=== PATIENT | female | born 1950 | race Hispanic/Latino ===

== ENCOUNTER 2021-01-14 15:44 | Emergency (ER) | payer OTHER, MEDICARE ==
[2021-01-14] MEDS ORDERED: ONDANSETRON HCL 4 MG/2 ML VIAL ONE (16:23)
[2021-01-14 16:44] LABS: BASOPHILS % (AUTO) 0.3 % (0.0-5.0); EOSINOPHILS % (AUTO) 0.1 % (0.0-8.0); HEMATOCRIT 42.7 % (36-48); LYMPHOCYTES % (AUTO) 2.6 % (21.0-51.0); MEAN CORPUSCULAR HEMOGLOBIN 27.2 pg (27.0-33.0); MEAN CORPUSCULAR HGB CONC 31.4 g/dL (32.0-36.0); MEAN CORPUSCULAR VOLUME 86.6 fL (79-99); MONOCYTES % (AUTO) 3.7 % (3.0-13.0); NEUTROPHILS % (AUTO) 92.8 % (40.0-77.0); PLATELET COUNT (AUTO) 310 K/uL (130-400); RED BLOOD CELL COUNT(AUTO) 4.93 MIL/uL (4.00-5.50); RED CELL DISTRIBUTION WIDTH 14.5 % (11.0-15.5); WHITE BLOOD COUNT (AUTO) 10.9 K/uL (4.8-10.8)
[2021-01-14 16:53] LABS: CREATININE 0.9 mg/dL (0.5-1.5); POTASSIUM 3.7 mmol/L (3.5-5.1)
[2021-01-14 16:58] LABS: ALBUMIN 3.7 g/dL (3.5-5.0); BILIRUBIN,TOTAL 0.5 mg/dL (0.2-1.0); TOTAL PROTEIN, SERUM 7.5 g/dL (6.0-8.3)
[2021-01-14 17:44] LABS: APPEARANCE,URINE Clear (CLEAR); BILIRUBIN,URINE Negative (NEGATIVE); COLOR,URINE Yellow (YELLOW); GLUCOSE, URINE (UA) Negative (NEGATIVE); KETONES,URINE Trace mg/dL (NEGATIVE); LEUKOCYTE ESTERASE ,URINE Trace (NEGATIVE); NITRATE,URINE Negative (NEGATIVE); OCCULT BLOOD,URINE Negative (NEGATIVE); PH,URINE 6.5 (5.0-8.0); PROTEIN,URINE POS 1+ mg/dL (NEGATIVE)
[2021-01-14 18:08] LABS: BACTERIA,URINE Few /HPF (None Seen); MUCUS,URINE Few LPF (None Seen); SQUAMOUS EPITHELIAL CELL,UR Moderate /HPF (0-2)
== END 2021-01-14 18:42 | disposition home or self-care (01) ==
LOC: EDH 15:44
DX: R11.2 Nausea with vomiting, unspecified (principal)
CPT/HCPCS: 36415; 80053; 81001; 83690; 85025; 93005; 96365; 96366; 99284; J2405

== ENCOUNTER 2023-07-07 15:23 | Observation (INO) | payer MEDICARE, OTHER ==
[~2023-07-07] VITALS: Ht 162.6 cm; Wt 104.3 kg
[2023-07-07 16:26] LABS: APPEARANCE,URINE CLOUDY (CLEAR); BILIRUBIN,URINE NEGATIVE (NEGATIVE); COLOR,URINE LIGHT-YELLOW (YELLOW); GLUCOSE, URINE (UA) NEGATIVE (NEGATIVE); KETONES,URINE NEGATIVE (NEGATIVE); LEUKOCYTE ESTERASE ,URINE NEGATIVE Leu/uL (NEGATIVE); NITRATE,URINE NEGATIVE (NEGATIVE); OCCULT BLOOD,URINE NEGATIVE (NEGATIVE); PH,URINE 7.5 (5.0-8.0); PROTEIN,URINE NEGATIVE (NEGATIVE); UROBILINOGEN,URINE 0.2 mg/dL (0.2-1.0)
[2023-07-07 16:27] LABS: ADD UA MICROSCOPIC YES
[2023-07-07 16:30] LABS: BACTERIA,URINE FEW /HPF (None Seen); MUCUS,URINE RARE LPF (None Seen); RBC,URINE 0-1 /HPF (0-1); SQUAMOUS EPITHELIAL CELL,UR RARE /HPF (0-2); UNCLASSIFIED CRYSTAL 13 /HPF (None Seen); YEAST,URINE BUDDING MOD /HPF (None Seen)
[2023-07-07 16:57] LABS: BASOPHILS # (AUTO) 0.05 K/uL (0.00-0.20); BASOPHILS % (AUTO) 0.5 % (0.0-5.0); EOSINOPHILS # (AUTO) 0.04 K/uL (0.00-0.70); EOSINOPHILS % (AUTO) 0.4 % (0.0-8.0); HEMATOCRIT 41.5 % (36-48); IMMATURE GRANULOCYTE ABSOLUTE 0.09 K/uL (0-1); LYMPHOCYTES # (AUTO) 1.1 K/uL (1.0-4.8); LYMPHOCYTES % (AUTO) 11.6 % (21.0-51.0); MEAN CORPUSCULAR HGB CONC 32.8 g/dL (32.0-36.0); MEAN CORPUSCULAR VOLUME 88.5 fL (79-99); MONOCYTES # (AUTO) 0.6 K/uL (0.1-1.0); MONOCYTES % (AUTO) 5.8 % (3.0-13.0); NEUTROPHILS # (AUTO) 7.8 K/uL (1.8-7.7); NEUTROPHILS % (AUTO) 80.8 % (40.0-77.0); PLATELET COUNT (AUTO) 305 K/uL (130-400); RED BLOOD CELL COUNT(AUTO) 4.69 MIL/uL (4.00-5.50); RED CELL DISTRIBUTION WIDTH 13.4 % (11.0-15.5); WHITE BLOOD COUNT (AUTO) 9.6 K/uL (4.8-10.8)
[2023-07-07 17:05] LABS: POTASSIUM 3.4 mmol/L (3.5-5.1)
[2023-07-07 17:09] LABS: ALBUMIN 3.9 g/dL (3.5-5.0); BILIRUBIN,TOTAL 0.3 mg/dL (0.2-1.0); TOTAL PROTEIN, SERUM 7.8 g/dL (6.0-8.3)
[2023-07-07] MEDS ORDERED: KCL 20 MEQ ERTAB PO ONE ×2 (18:20→18:30)
[2023-07-07] MEDS ORDERED: TEMAZEPAM 15 MG CAPSULE PO PRN (18:30)
[2023-07-07] MEDS ORDERED: ACETAMINOPHEN 325 MG TAB PO PRN (18:30)
[2023-07-07] MEDS ORDERED: HYDRALAZINE 20MG/ML VIAL IV PRN (18:30)
[2023-07-07] MEDS ORDERED: LABETALOL 20MG SYG IV PRN (18:30)
[2023-07-07] MEDS ORDERED: ONDANSETRON 4MG INJ IVP PRN (18:30)
[2023-07-07] MEDS ORDERED: ACETAMINOPHEN 650 MG SUPPOSITORY RC PRN (18:30)
[2023-07-07] MEDS ORDERED: LACTULOSE 20 GM/30 ML UDCUP PO PRN (18:30)
[2023-07-07] MEDS ORDERED: CLONIDINE HCL 0.1 MG TABLET PO PRN (18:30)
[2023-07-07] MEDS ORDERED: IPRATROPIUM 0.5 MG/2.5 ML INH IH PRN (18:30)
[2023-07-07] MEDS ORDERED: DOCUSATE SODIUM 100 MG CAP PO PRN (18:30)
[2023-07-07] MEDS ORDERED: ALBUTEROL 0.083% 2.5 MG/3 ML INH IH PRN (18:30)
[2023-07-07] MEDS ORDERED: DEXTROSE 50%-WATER 50 ML DISP.SYRIN IV PRN (19:00)
[2023-07-07] MEDS ORDERED: ASPIRIN 81MG CHEW TAB PO ONE (19:00)
[2023-07-07] MEDS ORDERED: GLUCAGON 1MG KIT 1 MG ML IM PRN (19:00)
[2023-07-07] MEDS ORDERED: NITROGLYCERIN 0.4 MG SL TAB SL PRN (19:00)
[2023-07-07] MEDS ORDERED: MAGNESIUM 2GM PREMIX 50ML 50 ML IV PRN (19:00)
[2023-07-07] MEDS ORDERED: POTASSIUM CHLORIDE 10% ELIXIR 20 MEQ/15 ML UDCUP PO PRN (19:00)
[2023-07-07] MEDS ORDERED: POTASSIUM CHLORIDE 20MEQ/100ML 100 ML IV PRN (19:00)
[2023-07-07] MEDS ORDERED: KCL 20 MEQ ERTAB PO PRN (19:00)
[2023-07-07 20:00] VITALS: O2SAT 95
[2023-07-07] MEDS ORDERED: AMLO10TA4 PO (20:09)
[2023-07-07] MEDS ORDERED: LEVO25CA4 PO (20:09)
[2023-07-07] MEDS: FAMOTIDINE 20MG TAB PO SCH (20:09)
[2023-07-07] MEDS ORDERED: [UNRECOGNIZED DRUG - CODE] PO (20:09)
[2023-07-07] MEDS ORDERED: LOVA40TA2 PO (20:09)
[2023-07-07] MEDS: INSULIN HUMULIN R 100 UNIT/ML 3ML SQ SCH (20:09)
[2023-07-07] MEDS ORDERED: ERGO500093 PO (20:09)
[2023-07-07] MEDS ORDERED: MONT-46 PO (20:09)
[2023-07-07] MEDS ORDERED: CETI10TA57 PO (20:09)
[2023-07-07 20:40] VITALS: PULSE 77; RESP 18; O2SAT 98
[2023-07-07 21:06] VITALS: BP 139/73; PULSE 78; RESP 18
[2023-07-07] MEDS ORDERED: IOHEXOL-350 75 ML VIAL IV ONE (21:28)
[2023-07-07] MEDS ORDERED: ATORVASTATIN 40 MG TABLET PO SCH (21:40)
[2023-07-07] MEDS: ENOXAPARIN SODIUM 40 MG/0.4 ML SYRINGE SQ SCH (22:17)
[2023-07-07 22:20] VITALS: BP 150/89; PULSE 68; RESP 18
[2023-07-07 22:27] LABS: INFLUENZA TYPE A Negative For Type A (NEGATIVE); INFLUENZA TYPE B Negative For Type B (NEGATIVE)
[2023-07-07 22:32] LABS: SARS-CoV-2, RNA, NAAT NEGATIVE SARS CoV-2 (NEGATIVE)
[2023-07-08 00:22] VITALS: BP 113/62; PULSE 60; RESP 20
[2023-07-08 04:24] VITALS: BP 127/61; PULSE 61; RESP 18
[2023-07-08 04:40] LABS: BASOPHILS # (AUTO) 0.04 K/uL (0.00-0.20); BASOPHILS % (AUTO) 0.6 % (0.0-5.0); EOSINOPHILS # (AUTO) 0.13 K/uL (0.00-0.70); EOSINOPHILS % (AUTO) 1.8 % (0.0-8.0); HEMATOCRIT 37.2 % (36-48); IMMATURE GRANULOCYTE ABSOLUTE 0.04 K/uL (0-1); LYMPHOCYTES # (AUTO) 2.1 K/uL (1.0-4.8); LYMPHOCYTES % (AUTO) 28.7 % (21.0-51.0); MEAN CORPUSCULAR HEMOGLOBIN 29.1 pg (27.0-33.0); MEAN CORPUSCULAR HGB CONC 33.1 g/dL (32.0-36.0); MEAN CORPUSCULAR VOLUME 88.2 fL (79-99); MONOCYTES # (AUTO) 0.6 K/uL (0.1-1.0); MONOCYTES % (AUTO) 8.5 % (3.0-13.0); NEUTROPHILS # (AUTO) 4.3 K/uL (1.8-7.7); NEUTROPHILS % (AUTO) 59.8 % (40.0-77.0); PLATELET COUNT (AUTO) 306 K/uL (130-400); RED BLOOD CELL COUNT(AUTO) 4.22 MIL/uL (4.00-5.50); RED CELL DISTRIBUTION WIDTH 13.7 % (11.0-15.5); WHITE BLOOD COUNT (AUTO) 7.2 K/uL (4.8-10.8)
[2023-07-08 04:59] LABS: HEMOGLOBIN A1C 5.8 % (4.0-6.0)
[2023-07-08 05:07] LABS: CREATININE 0.9 mg/dL (0.5-1.5); MAGNESIUM 2.4 mg/dL (1.80-2.40); PHOSPHORUS 3.6 mg/dL (2.5-4.9); POTASSIUM 3.7 mmol/L (3.5-5.1); THYROID STIMULATING HORMONE 3.07 uIU/mL (0.36-3.74)
[2023-07-08] MEDS: INSULIN HUMULIN R 100 UNIT/ML 3ML SQ SCH ×2 (05:49→11:30)
[2023-07-08] MEDS ORDERED: LEVOTHYROXINE 25 MCG TABLET PO SCH (06:30)
[2023-07-08 07:41] VITALS: PULSE 61; RESP 16; O2SAT 97
[2023-07-08 08:00] VITALS: BP 125/72; PULSE 65; RESP 18; O2SAT 95
[2023-07-08] MEDS ORDERED: CETIRIZINE HCL 5 MG TABLET PO SCH (09:00)
[2023-07-08] MEDS ORDERED: NON-FORMULARY MEDICATION 1 EACH (Amlodipine Besylate (Norvasc) 10 MG) PO SCH (09:00)
[2023-07-08] MEDS ORDERED: ASPIRIN 81MG CHEW TAB PO SCH (09:00)
[2023-07-08] MEDS ORDERED: AMLODIPINE 5 MG TAB PO SCH (09:00)
[2023-07-08] MEDS ORDERED: MONTELUKAST SODIUM 10 MG TAB PO SCH (09:00)
[2023-07-08] MEDS ORDERED: NON-FORMULARY MEDICATION 1 EACH (Levothyroxine Sodium (Levothyroxine) 25 MCG) PO SCH (09:00)
[2023-07-08] MEDS ORDERED: ENOXAPARIN SODIUM 40 MG/0.4 ML SYRINGE SQ SCH (09:00)
[2023-07-08] MEDS ORDERED: NON-FORMULARY MEDICATION 1 EACH (Cetirizine HCl 10 MG) PO SCH (09:00)
[2023-07-08] MEDS: FAMOTIDINE 20MG TAB PO SCH (09:00)
[2023-07-08] MEDS: ENOXAPARIN SODIUM 40 MG/0.4 ML SYRINGE SQ SCH (09:02)
[2023-07-08 12:00] VITALS: BP 136/83; PULSE 67; RESP 18
[2023-07-08] MEDS ORDERED: AMOX/CLAV 500/125MG TAB PO SCH (14:00)
[2023-07-08] MEDS ORDERED: IPRATROPIUM 0.5 MG/2.5 ML INH IH PRN (14:30)
[2023-07-08] MEDS ORDERED: AMOX1TAB15 PO (15:57)
== END 2023-07-08 16:35 | disposition home or self-care (01) ==
LOC: EDH 15:23 → EDHIP 18:10 → 3DH 22:24
PROVIDERS: ADMIT Internal Medicine; ATTEND Internal Medicine
DX: R07.89 Other chest pain (principal); Z20.822 Contact with and (suspected) exposure to COVID-19; S91.134A Puncture wound without foreign body of right lesser toe(s) without damage to nail, initial encounter; M54.2 Cervicalgia; R42 Dizziness and giddiness; J06.9 Acute upper respiratory infection, unspecified; E87.6 Hypokalemia; E11.65 Type 2 diabetes mellitus with hyperglycemia; I12.9 Hypertensive chronic kidney disease with stage 1 through stage 4 chronic kidney disease, or unspecified chronic kidney disease; E11.22 Type 2 diabetes mellitus with diabetic chronic kidney disease; N18.2 Chronic kidney disease, stage 2 (mild); E78.5 Hyperlipidemia, unspecified; E03.9 Hypothyroidism, unspecified; R60.0 Localized edema; Z79.82 Long term (current) use of aspirin; Z79.899 Other long term (current) drug therapy; W54.0XXA Bitten by dog, initial encounter; Y93.89 Activity, other specified; Y92.89 Other specified places as the place of occurrence of the external cause; Y99.8 Other external cause status
CPT/HCPCS: 96372 ×2; 99285; 84484 ×3; 80053; 83880; 85025 ×2; 85378; 87804 ×2; 82948 ×3; 81001; 36415 ×2; 87635; 71045; 93880; 71270; 93970; 93005 ×3; 94664; 83036; 84443; 83735; 84100; 80048; 73630; 93306; 93356; G0378 ×22; J1650 ×2; Q9967

== ENCOUNTER → 2023-08-20 | Outpatient (CLI) | payer MEDICARE ==
[~2023-08-20] MED LIST: AMLO10TA4 PO; AMOX1TAB15 PO; CETI10TA57 PO; ERGO500093 PO; IOHEXOL 350 MG/ML 100ML INFUS..BTL IV ONE; LEVO25CA4 PO; LOVA40TA2 PO; METOPROLOL TARTRATE 1 MG/ML 5ML VIAL IV ONE; MONT-46 PO; [UNRECOGNIZED DRUG - CODE] PO
== END | disposition home or self-care (01) ==
LOC: RAH 08:56
PROVIDERS: ATTEND Student in an Organized Health Care Education/Training Program
DX: I25.10 Atherosclerotic heart disease of native coronary artery without angina pectoris (principal); K44.9 Diaphragmatic hernia without obstruction or gangrene; R07.9 Chest pain, unspecified; M47.815 Spondylosis without myelopathy or radiculopathy, thoracolumbar region
CPT/HCPCS: 75574; J3490; Q9967